=== PATIENT | male | born 1990 | race Two or more races ===

== ENCOUNTER 2021-10-18 14:43 | Emergency (ER) | payer OTHER ==
[~2021-10-18] VITALS: Ht 170.2 cm; Wt 61.2 kg
[2021-10-18 14:55] VITALS: BP 104/64
== END 2021-10-18 19:01 | disposition left against medical advice (07) ==
LOC: ER 14:43
DX: R10.9 Unspecified abdominal pain (principal); J45.909 Unspecified asthma, uncomplicated
CPT/HCPCS: 74176